=== PATIENT | male | born 2005 | race Caucasian/White ===

== ENCOUNTER 2025-08-11 21:19 | Emergency (ER) | payer SELFPAY ==
[~2025-08-11] VITALS: Ht 185.4 cm; Wt 72.6 kg
[2025-08-11] MEDS ORDERED: MORPHINE SULFATE INJ 4 MG/ML DISP.SYRIN ONE (23:19)
[2025-08-11] MEDS ORDERED: ONDANSETRON HCL/PF 4 MG/2 ML VIAL ONE (23:19)
[2025-08-11] MEDS: MORPHINE SULFATE INJ 2 MG/ML DISP.SYRIN IV ONE (23:19)
[2025-08-11] MEDS: ONDANSETRON HCL/PF 4 MG/2 ML VIAL IVP ONE (23:19)
[2025-08-11 23:26] LABS: PLATELET COUNT (AUTO) 224 K/uL (150-450); RED BLOOD CELL COUNT(AUTO) 5.27 MIL/uL (4.5-6.0); RED CELL DISTRIBUTION WIDTH 13.4 % (11.5-15.0); WHITE BLOOD COUNT (AUTO) 7.2 K/uL (4.3-11.0)
[2025-08-11 23:30] LABS: CALCIUM, SERUM 8.5 mg/dL (8.5-10.1); CREATININE 1.0 mg/dL (0.6-1.3); SODIUM SERUM 141 mmol/L (136-145); UREA NITROGEN, BLOOD 22 mg/dL (7-18)
[2025-08-12] MEDS ORDERED: METH-649 PO (00:32)
[2025-08-12] MEDS ORDERED: NAPR500T6 PO (00:32)
[2025-08-12] MEDS ORDERED: KETOROLAC TROMETHAMINE 15 MG/ML VIAL ONE (00:33)
[2025-08-12] MEDS: KETOROLAC TROMETHAMINE 15 MG/ML VIAL IV ONE (00:35)
[2025-08-12 00:43] VITALS: BP 118/86; TEMP 98.6; O2SAT 99
== END 2025-08-12 00:43 | disposition home or self-care (01) ==
LOC: ER 21:25
DX: R07.9 Chest pain, unspecified (principal); M54.9 Dorsalgia, unspecified; M79.601 Pain in right arm; M79.602 Pain in left arm; Z91.048 Other nonmedicinal substance allergy status
CPT/HCPCS: 99285; 96374; 71045; 96375 ×2; 93005; 85025; 80048; 36415; 84484; J2270; J2405; J1885